=== PATIENT | female | born 1955 | race Caucasian/White ===

== ENCOUNTER 2020-01-29 03:30 | Inpatient (IN) | payer MEDICARE, SELFPAY ==
[2020-01-29] VITALS (64 sets, daily range): BP systolic 66–162; BP diastolic 31–131
[~2020-01-29] VITALS: Ht 172.7 cm; Wt 78.5 kg
[~2020-01-29 03:30] MED LIST: ACET-787 PO
--- NOTE | 2020-01-29 03:30 | NUR ---
BALDEMAR PERRY. TAKEN TO BED 1
--- NOTE | 2020-01-29 03:45 | NUR ---
64 YEAR OLD FEMALE BIBA FROM HOME FOR ALTERED LOC. PER EMS PT CHOKED ON FOOD WHILE EATING THE DAY BEFORE AT 1400 AND HAS BEEN ALTERED SINCE. PER EMS PT NORMALLY HAS GCS 15, BUT NOT HAS BEEN ACTING CORRECTLY SINCE AND DOES NOT SPEAK CORRECTLY. PER EMS PT FOUND ON FLOOR BY FAMILY, EMS NOT SURE IF THEY WITNESSED FALL. PT GCS 12 ([id number]), PT WEAK AND UNABLE TO LIFT LEGS WHEN ASKED. PT SQUEEZES FINGERS WITH LITTLE STRENGTH WHEN ASKED. PT MUMBLES INCOHERENT WORDS. PT AOX0, BREATHING LABORED AND EVEN, SKIN WARM AND DRY. PT PLACED ON 4L O2, 98%. BED IN LOWEST POSITION, LOCKED, BED RAIL UPX1. COVID PRECAUTIONS INITIATED. PT PLACED ON MONITOR, ERMD MADE AWARE OF PT. PMH - CHF, HTN ALLERGIES - NKA
--- NOTE | 2020-01-29 03:54 | NUR ---
RELATIVE TO PATIENT , "KAMERON" CALLED AT [phone] TO RECEIVE INFORMATION REGARDING PATIENT. NO ANSWER.
--- NOTE | 2020-01-29 03:59 | NUR ---
BP 73/41, ERMD MADE AWARE
[2020-01-29] MEDS ORDERED: NACL 0.9% 1,000 ML IV ONE ×3 (04:00→04:35)
--- NOTE | 2020-01-29 04:04 | NUR ---
INITIATED CODE BRAIN PER DR. CONNORS
[2020-01-29 04:08] LABS: HEMATOCRIT 29.3 % (36-48); HEMOGLOBIN 8.4 g/dL (12.0-16.0); MEAN CORPUSCULAR HEMOGLOBIN 25 pg (27-31); MEAN CORPUSCULAR HGB CONC 29 g/dL (33-37); MEAN CORPUSCULAR VOLUME 86.9 fL (80-94); PLATELET COUNT (AUTO) 357 K/uL (140-450); RED BLOOD CELL COUNT(AUTO) 3.37 MIL/uL (4.20-5.40)
--- NOTE | 2020-01-29 04:10 | NUR ---
Respiratory Therapist at bedside for respiratory intervention.
--- NOTE | 2020-01-29 04:15 | NUR ---
Sonny jacobson in [facility] - 01/29/20 at [address] Saravia examining patient.
[2020-01-29 04:23] LABS: RED CELL DISTRIBUTION WIDTH 20.5 % (11.6-13.7)
[2020-01-29 04:24] LABS: LYMPHOCYTES % (MANUAL) 3 % (20-46); MONOCYTES % (MANUAL) 1 % (5-12)
--- NOTE | 2020-01-29 04:30 | NUR ---
RN AT BEDSIDE. PT REMAINS ON CONTINOUS CARDIAC MONITORING
[2020-01-29] MEDS ORDERED: VANCOMYCIN 1,000 MG in DEXTROSE 5% 250 ML IV ONE (04:35)
[2020-01-29] MEDS ORDERED: PIPERACILLIN/TAZOBACTAM 3.375 GM in DEXTROSE 5% 50 ML IV ONE (04:35)
[2020-01-29 04:37] LABS: APPEARANCE,URINE CLOUDY (CLEAR); BILIRUBIN,URINE NEGATIVE (NEGATIVE); BLOOD, URINE NEGATIVE (NEGATIVE); COLOR,URINE YELLOW (YELLOW); LEUKOCYTE ESTERASE ,URINE 1+ (NEGATIVE); NITRITE, URINE NEGATIVE (NEGATIVE); UGLUCOSE NEGATIVE (NEGATIVE)
[2020-01-29] MEDS ORDERED: GABA300C PO (04:41)
[2020-01-29] MEDS ORDERED: DIGO0.122 PO (04:41)
[2020-01-29] MEDS ORDERED: CARV12.5 PO (04:41)
[2020-01-29] MEDS ORDERED: HYDR-5092 PO (04:41)
[2020-01-29] MEDS ORDERED: LISI-420 PO (04:41)
[2020-01-29] MEDS ORDERED: ESCI10TA61 PO (04:41)
--- NOTE | 2020-01-29 04:44 | NUR ---
PT TAKEN TO CT
[2020-01-29] MEDS ORDERED: PIPERACILLIN/TAZOBACTAM 3.375 GM VIAL IV ONE (04:49)
[2020-01-29] MEDS ORDERED: VANCOMYCIN 1,000 MG VIAL ONE (04:49)
[2020-01-29 04:54] LABS: ACETAMINOPHEN 4.8 ug/ml (10-30); ALBUMIN 2.2 g/dL (3.4-5.0); ANION GAP 12.8 (8-16); ASPARTATE AMINOTRANSFERASE 10 U/L (15-37); CHLORIDE 105 mmol/L (98-107); CREATININE 3.8 mg/dL (0.6-1.3); FREE T4 (FREE THYROXINE) 0.93 ng/dL (0.76-1.46); GFR ARICAN-AMERICAN 15 mL/min (>90); GLUCOSE 100 mg/dL (74-106); POTASSIUM 4.8 mmol/L (3.5-5.1); SODIUM SERUM 140 mmol/L (136-145); THYROID STIMULATING HORMONE 2.68 uIU/mL (0.34-3.74); TOTAL BILIRUBIN 0.3 mg/dL (0.0-1.0); UREA NITROGEN, BLOOD 52 mg/dL (7-18)
[2020-01-29 04:55] LABS: SALICYLATE < 2.8 mg/dL (2.8-20.0)
--- NOTE | 2020-01-29 05:00 | NUR ---
PT RETURNS FROM CT
--- NOTE | 2020-01-29 05:00 | NUR ---
RN AT BEDSIDE. PT REMAINS ON CONTINOUS CARDIAC MONITORING
--- NOTE | 2020-01-29 05:02 | NUR ---
PER PERI PRINCE TO HOLD LEVOPHED GTT UNTIL 3RD LITER OF NS HAS INFUSED COMPLETLEY.
[2020-01-29 05:07] LABS: RBC,URINE 0-5 /HPF (0-5); WBC,URINE TOO MANY TO COUNT /HPF (0-5)
--- NOTE | 2020-01-29 05:15 | NUR ---
COVID SWAB TAKEN AND SENT TO LAB
--- NOTE | 2020-01-29 05:30 | NUR ---
RN AT BEDSIDE. PT REMAINS ON CONTINOUS CARDIAC MONITORING
[2020-01-29] MEDS ORDERED: NOREPINEPHRINE 4 MG/4 ML VIAL IV ONE (05:37)
--- NOTE | 2020-01-29 05:38 | NUR ---
BP 75/27, HR 96. ERMD MADE AWARE
[2020-01-29] MEDS ORDERED: ONDANSETRON 4 MG/2 ML VIAL IM/IVP PRN (05:45)
[2020-01-29] MEDS ORDERED: ACETAMINOPHEN 325 MG TAB PO PRN (05:45)
[2020-01-29] MEDS ORDERED: DOCUSATE SODIUM 100 MG GELCAP PO PRN (05:45)
[2020-01-29] MEDS ORDERED: HYDROcodone/APAP 5/325 MG 1 TAB TAB PO PRN (05:45)
[2020-01-29] MEDS: NOREPINEPHRINE 4 MG in DEXTROSE 5% 250 ML IV ONE ×2 (05:50→06:54)
--- NOTE | 2020-01-29 05:50 | NUR ---
TITRATION ADMINISTERED ORDERED. SEE IV SPREAD SHEET FOR VS DURING TITRATION
--- NOTE | 2020-01-29 06:15 | NUR ---
ADMITTED PT FROM ER. PT ON LEVOPHED @ 7MCG/MIN. PT IS ALERT AND ORIENTED X1-2. SPEECH MUMBLES, ABLE TO FOLLOW COMMANDS. WEAKNESS ON BILATERAL LOWER EXTREMITIES. USES WALKER AT HOME PER PT. RESPIRATION EVEN AND UNLABORED. SKIN WARM AND DRY. BLANCHABLE REDNESS WITH LINEAR OPEN WOUND TO SACROCOCCYX, OPTIFOAM APPLIED TO SITE. LUNGS ARE CLEAR UPON AUSCULTATION. BOWEL SOUNDS ACTIVE. ORAL MUCOSA PINK AND MOIST. PERIPHERAL ACCESSES ON THE LEFT AC G22, AND RIGHT UPPER FOREARM G20. ASYMPTOMATIC AND PATENT. STRONG HAND PHOTOGRAPHIC AIDE ON BILATERAL HANDS. URBAN CATHETER IN PLACE DRAINING TO GRAVITY. MRSA SWAB OBTAINED. BED IN LOWEST POSITION, SIDE RAILS UP. DROPLET PRECAUTION INITIATED. FLACC 0. WILL CONTINUE TO MONITOR.
--- NOTE | 2020-01-29 06:15 | NUR ---
Patient will be admitted to care of Dr Duke. Admited to ICU. Will go to room 3. Belongings list completed. Report to Ángel MITCHELL.
[2020-01-29 06:33] LABS: CHOL/HDL RATIO 3.1 (1-4.5); MAGNESIUM 2.2 mg/dL (1.8-2.4); PHOSPHORUS 5.9 mg/dL (2.5-4.9); THYROID STIMULATING HORMONE 2.93 uIU/mL (0.34-3.74)
[2020-01-29] MEDS ORDERED: VANCOMYCIN PER PHARMACY MC PRN (06:35)
[2020-01-29] MEDS ORDERED: LORazepam 2 MG/ML VIAL IVP ONE (06:35)
[2020-01-29 06:48] LABS: PROTHROMBIN TIME 17.8 secs (10.8-13.4)
[2020-01-29 06:55] LABS: BARBITURATE, URINE NEGATIVE ng/ml (NEG <=200); BENZODIAZEPINE, URINE NEGATIVE ng/mL (NEG <=200); CANNABINOID, URINE NEGATIVE ng/mL (NEG <=50); COCAINE, URINE POSITIVE ng/mL (NEG <=300); OPIATE, URINE POSITIVE ng/mL (NEG <=2000); PHENCYCLIDINE SCREEN,URINE NEGATIVE ng/mL (NEG <=25)
--- NOTE | 2020-01-29 07:10 | NUR ---
ENDORSED PT TO DAY SHIFT RN FOR CONTINUITY OF CARE.
--- NOTE | 2020-01-29 07:40 | NUR ---
DR BUCKLEY AND MEDICAL TEAM AT BEDSIDE FOR EVAL
--- NOTE | 2020-01-29 07:50 | NUR ---
KAMERON PERAZA CALLED AT [phone], NO ANSWER, LEFT MESSAGE
[2020-01-29] MEDS ORDERED: LORazepam 2 MG/ML VIAL ONE (08:12)
--- NOTE | 2020-01-29 08:45 | NUR ---
TIMEOUT DONE FOR CENTRAL LINE, PLACED TO RIGHT IJ BY DR DELEON, CALLED RADIOLOGY CONFIRMATION XRAY
[2020-01-29] MEDS ORDERED: NOREPINEPHRINE 16 MG in DEXTROSE 5% 250 ML IV PRN (09:00)
[2020-01-29] MEDS ORDERED: ACET-5636 PO (09:26)
[2020-01-29] MEDS ORDERED: DABI150C PO (09:26)
--- NOTE | 2020-01-29 10:23 | NUR ---
DISCHARGE PLANNING: CONTACTED [place] AT [phone], ABLE TO SPEAK TO [facility]. SHE STATED THAT NO FOREIGN LANGUAGE PROFESSOR ASSIGNED AT THIS TIME SINCE AUTH IS UNTIL 01/30/[address] DELEON PATIENT IS NOT STABLE FOR TRANSFER TODAY. Addendum: 01/29/20 at 1212 by Surekha Baker THIS ID A 64 Y/O FEMALE PATIENT FROM HOME, WHO WAS BIBA DUE TO ALOC. PAST MEDICAL HISTORY INCLUDE CHF, ESSENTIAL HTN, A FIB AND CHRONIC PIN SYNDROME. INITIAL DIAGNOSIS OF SEPSIS, UTI AND HYPOTENSION. CURRENT LABS INCLUDE WBC 13.0, H/H 8.4/29.3, NA/K 140/4.8, BUN/CREA 52/3.8 AND ALB 2.2. COVID PENDING. D DIMER 943. ON O2 AT 4 LPM/NC. ON LEVOPHED DRIP. ON ZOSYN AND VANCOMYCIN. URINE AND BLOOD CS PENDING. UDS SHOWED POSITIVE FOR OPIATES X2 AND 1ST UDS POSITIVE FOR COCAINE AND 2ND IS NEGATIVE. CRITICAL CARE CONSULT IN PLACE - NOT SEEN YET. HEAD CT SHOWED NO HEMODYNAMICALLY SIGNIFICANT STENOSIS OR OCCLUSION. 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 CXR ON ADMISSION SHOWED SMALL TO MODERATE LEFT PLEURAL EFFUSION, BIBASILAR ATELECTASIS/ CONSOLIDATION. COVID STILL PENDING. DC PLAN PENDING ON PATIENT'S RESPONSE TO TREATMENT. Addendum: 01/30/20 at 1028 by Surekha Baker DISCUSSED DURING BED HUDDLE, PATIENT IS NOT STABLE FOR TRANSFER YET DUE TO 2 PRESSORS. CONTACTED [facility] AT [phone], ABLE TO SPEAK TO [facility] PATIENT COORDINATOR. SIOBHAN ELLIS IS THE ONE ASSIGNED TODAY. REQUESTED TO BE TRANSFERRED, HOWEVER SIOBHAN IS WITH ANOTHER CALL. PROVIDED UPDATE TO [facility]. SHE STATED SHE WILL RELAY THE MESSAGE TO SIOBHAN ELLIS. PROVIDED HER OF MY CONTACT INFO IF INCASE THEY HAVE ANYMORE QUESTIONS. Addendum: 01/30/20 at 1149 by Surekha Baker CM RECEIVED AN AUTH [id number] FOR 01/30/2020 TO 01/31/2020, NEXT REVIEW WILL BE 01/31/2020 AT 1000. WILL FOLLOW UP. Addendum: 01/31/20 at 1021 by Surekha Baker CM 0840: RECEIVED AN ORDER THAT PATIENT IS STABLE TO BE TRANSFERRED TO [facility]. CONTACTED [facility] AT [phone], ABLE TO SPEAK TO PATIENT COORDINATOR TRACI. HE STATED THEY DO NOT HAVE AN ASSIGNMENT YET. INFORMED HIM THAT PATIENT IS STABLE FOR TRANSFER, BUT H/H IS 6.6 TODAY AND WILL BE NEEDING TRANSFUSION FIRST PENDING DOC'S ORDER. Addendum: 01/31/20 at 1048 by Surekha Baker CM CONTACTED [facility] AGAIN TO PROVIDE UPDATE. PER MOLD YARD CRANE OPERATOR DECEMBER, SIOBHAN ELLIS IS ASSIGNED TODAY. INFORMED HER THAT THE PATIENT NEEDS THORACENTESIS TODAY AND HAVE TO BE MONITORED AFTER THE PROCEDURE. REQUESTED TRANSFER LATER THIS AFTERNOON OR EVENING. PER DECEMBER, SHE WILL LET SIOBHAN ELLIS KNOW. Addendum: 01/31/20 at 1124 by Surekha Baker RECEIVED A MESSAGE FROM SIOBHAN ELLIS, STATING THAT THEY WILL AUTHORIZE [id number] THE STAY FOR TODAY UNTIL TOMORROW DUE TO THE PROCEDURE. CONTACTED [facility] AND REQUESTED TO BE TRANSFERRED TO SIOBHAN ELLIS HOWEVER SHE IS ON THE PHONE WITH A DOCTOR AND HER MOLD YARD CRANE OPERATOR EMILIO PICKED UP AND CONFIRMED THE AUTH FOR TODAY. I REQUESTED IF SIOBHAN RASHEL CAN CALL ME BACK TO CONFIRM THE AUTH, SHE STATED SHE IS CONFIRMING IT WITH ME. JULES RAMIRES MADE AWARE. Addendum: 02/01/20 at 1134 by Surekha Baker CONTACTED [facility], ABLE TO SPEAK TO MOLD YARD CRANE OPERATOR ZAIN. HE STATED SIOBHAN HAWKINS AND MOLD YARD CRANE OPERATORShauna LY ARE THE ONE ASSIGNED TO [facility] PATIENT. REQUESTED TO BE TRANSFERRED TO ANY OF THE TWO, ABLE TO SPEAK TO MOLD YARD CRANE OPERATOR MALACHI. INFORMED HER THAT PATIENT IS STABLE FOR TRANSFER. SHE STATED TO FAX OVER STABILITY ORDER. PROVIDED HER WITH THE CALL PHONE FOR DOC TO DOC. DR. DELEON MADE AWARE. CLINICALS AND ORDER FAX TO [phone]. WILL FOLLOW UP. Addendum: 02/01/20 at 1610 by Surekha Baker CM RECEIVED A CALL FROM SIOBHAN HAWKINS OF [facility], STATING THAT PATIENT GOT ACCEPTED AT [facility] PENDING BED NUMBER. CHARGE NURSE TAYLOR MADE AWARE. CONTACTED PATIENT'S KAMERON AND INFORMED REGARDING TRANSFER AND IS IN AGREEMENT.
[2020-01-29] MEDS: NACL 0.9% 1,000 ML IV SCH (10:25)
[2020-01-29] MEDS ORDERED: CALCIUM GLUCONATE 10% 1,000 MG in NACL 0.9% 50 ML IV ONE (10:40)
--- NOTE | 2020-01-29 10:46 | NUR ---
ENTRY LEVEL RECEPTIONIST NOTE: Basic Screen: Yes High Risk DC Screen Roxana: KAMERON Lee Relationship: Pre-Admission Living Arrangements: Lives with Other Prior ADL Independent Current Home Health Name/Tel: N/A Current DME/02 Name/Tel: N/A Current Hospice Name/Tel: N/A Current Dialysis Name/Tel: N/A Healthcare Decision Maker: Patient Advance Directive No Physician Orders for Life Sustaining Treatment Form No Patient/Family Have Educational Needs No Discipline: Case Mgt/Social Svcs Tentative Discharge Plan/Destination: No Needs Identified Will require assistance post discharge: No Referred to Coordinator Of Rehabilitation Services: No Tentative Discharge Plan Summary: PATIENT IS A 64-YEAR-OLD FEMALE ADMITTED FOR SEPSIS AND UTI. PATIENT HAS PMHX OF HYPERTENSION. PATIENT WAS ADMITTED FROM HOME WHERE SHE LIVES WITH AND SONS. DUE TO PATIENT'S MEDICAL CONDITION, SW WAS UNABLE TO MEET PATIENT AT BEDSIDE. SW CONTACTED PATIENT'S HUSBND KAMERON PERAZA [phone], PER KAMERON, PATIENT IS INDEPENDENT WITH ALL ADLS AND IS ALERT/ORIENTED AT BASELINE. KAMERON STATED THAT ALL OF PATIENT'S NEEDS ARE BEING MET. KAMERON REPORTED NO HISTORY OF SUBSTANCE ABUSE OR MENTAL HEALTH. TENTATIVE DISCHARGE PLAN IS FOR PATIENT TO RETURN HOME. NO FURTHER NEEDS IDENTIFIED. Signature: HAWK VASQUEZ Date: Jan 29, 2020 Time: 10:45
[2020-01-29 11:56] LABS: BARBITURATE, URINE NEGATIVE ng/ml (NEG <=200); BENZODIAZEPINE, URINE NEGATIVE ng/mL (NEG <=200); CANNABINOID, URINE NEGATIVE ng/mL (NEG <=50); COCAINE, URINE NEGATIVE ng/mL (NEG <=300); OPIATE, URINE POSITIVE ng/mL (NEG <=2000); PHENCYCLIDINE SCREEN,URINE NEGATIVE ng/mL (NEG <=25)
[2020-01-29] MEDS: PIPERACILLIN/TAZOBACTAM 3.375 GM in DEXTROSE 5% 50 ML IV SCH ×2 (12:50→18:37)
--- NOTE | 2020-01-29 14:12 | NUR ---
ST NOTE ORDER RECEIVED, CHART REVIEWED. PT SEEN BEDSIDE, GENERALLY SOMNOLENT, O2 SATS 99-100% ON O2 NC. PT DID NOT SUSTAIN ATTENTION TO TASK, OFTEN KEPT HER EYES CLOSED, DESPITE FIRM STERNAL RUB, REPOSITIONING, AND COLD STIMULUS TO FACE. PT WEAKLY ANSWERED "YES/NO" X2/8 TRIALS TO VERBAL STIMULATION. 1/2 TSP TRIAL OF NECTAR THICK LIQUIDS X3 GIVEN WITH POOR LABIAL SEAL, POOR TSP STRIPPING, SUSPECT POOR CONTROL OF BOLUS, SLIGHT DELAY SWALLOW TRIGGER, FAIR LARYNGEAL EXCURSION, DELAYED WEAK COUGH 2/3 TRIALS. FURTHER PO TRIALS DEFERRED D/T SOMNOLENCE, POOR SUSTAINED ATTENTION. CASE D/W PT'S RN, BEATRIZ. PT NOT APPROPRIATE FOR PO'S AT THIS TIME. MOBILE SOLUTIONS ARCHITECT TO F/U TO COMPLETE BEDSIDE SWALLOW EVAL WHEN PT CAN SUSTAIN ATTENTION TO TASK. -SAVANA TINSLEY MA, CCC-MOBILE SOLUTIONS ARCHITECT
--- NOTE | 2020-01-29 14:20 | NUR ---
PT RESTING WITH EYESC LOSED, AROUSES TO VOICE, ABLE TO STATE HER FULL NAME, MUMBLES, AND CONFUSED FOLLOWS SIMPLE COMMANDS ONLY AT THIS TIME, VITALS STABLE, REMAINS ON LEVOPHED DRIP.
--- NOTE | 2020-01-29 15:15 | NUR ---
PATIENT HAS BEEN SCREENED AND CATEGORIZED MODERATE NUTRITION RISK. PATIENT WILL BE SEEN WITHIN 3-5 DAYS OF ADMISSION. 01/31/20 02/02/[address]
--- NOTE | 2020-01-29 16:20 | NUR ---
PERICARE DONE, URBAN CARE DONE, PT ABLE TO TURN HERSELF WITH MINIMAL ASSIST, FOLLOWS COMMANDS, LINEN AND GOWN CHANGED.
[2020-01-29] MEDS ORDERED: CALCIUM ACETATE 667 MG TAB PO SCH (17:00)
--- NOTE | 2020-01-29 17:43 | NUR ---
[facility] PT PLACED ON SIMPLE MASK @ 10L DUE TO DESAT DR GARCIA WOULD LIKE PT O2 > 92% Addendum: 01/29/20 at 1751 by Hernan Sparks Jr RT CORRECTION - DR DELEON
--- NOTE | 2020-01-29 18:02 | NUR ---
KARMEN CALLED BACK, ADMISSION QUESTIONAIRES COMPLETED.
--- NOTE | 2020-01-29 18:05 | NUR ---
DR DELEON AT [facility], TO LIMIT LEVOPHED MAX AT 8MCG/MIN, THEN START VASOPRESSIN IF NEEDED PER DR BRICEÑO.
[2020-01-29] MEDS: VASOPRESSIN 20 UNITS in NACL 0.9% 250 ML IV SCH (18:15)
[2020-01-29 18:34] LABS: BASOPHILS % (AUTO) 0.3 % (0.0-2.0); EOSINOPHILS # (AUTO) 0.3 K/uL (0-0.4); EOSINOPHILS % (AUTO) 2.2 % (0.0-4.0); HEMATOCRIT 27.9 % (36-48); HEMOGLOBIN 8.1 g/dL (12.0-16.0); LYMPHOCYTES % (AUTO) 7.9 % (20.5-51.1); MEAN CORPUSCULAR HEMOGLOBIN 25 pg (27-31); MEAN CORPUSCULAR HGB CONC 29 g/dL (33-37); MEAN CORPUSCULAR VOLUME 86.3 fL (80-94); MONOCYTES # (AUTO) 0.9 K/uL (0.8-1.0); MONOCYTES % (AUTO) 6.7 % (1.7-9.3); NEUTROPHILS # (AUTO) 10.8 K/uL (1.8-7.7); NEUTROPHILS % (AUTO) 82.9 % (42.2-75.2); PLATELET COUNT (AUTO) 326 K/uL (140-450); RED BLOOD CELL COUNT(AUTO) 3.24 MIL/uL (4.20-5.40); RED CELL DISTRIBUTION WIDTH 20.7 % (11.6-13.7); WHITE BLOOD COUNT (AUTO) 13.1 K/uL (4.8-10.8)
[2020-01-29 18:39] LABS: CARBON DIOXIDE 25.2 mmol/L (21-32); POTASSIUM 4.2 mmol/L (3.5-5.1)
--- NOTE | 2020-01-29 18:39 | NUR ---
ADMINISTERED ANTIBIOTIC ZOSYN PER MD ORDER.
--- NOTE | 2020-01-29 19:22 | NUR ---
REPORT GIVEN TO SPEECH THERAPY DIRECTOR NURSE,PT AWAKE NOW, CRYING "LET ME GET OUT OF HERE". PT ABLE TO CONSOLE EASILY.
--- NOTE | 2020-01-29 19:30 | NUR ---
RECEIVED PT FROM DAY SHIFT RN, PT AWAKE IN BED CRYING, "LET ME OUT", PT FOLLOWS SIMPLE COMMANDS, ABLE TO STATE NAME AND LOCATION, PT IS LETHARGIC AND MUMBLES RESPONSES TO QUESTIONS. PT HAS RIJ TRIPLE LUMEN, RECEIVING LEVOPHED 8MCG/MIN AND VASOPRESSIN 0.02 UNITS/MIN, NS 60 ML/HR, LUNG SOUNDS DIMINISHED, WITH INTERMITTENT NON PRODUCTIVE COUGH, URBAN CATHETER DRAINING CLEAR LIGHT YELLOW URINE, PULSES PALPABLE UPPER AND LOWER EXTREMITIES, BOWEL SOUNDS ACTIVE, SAFETY PROTOCOLS IN PLACE WILL CONTINUE TO MONITOR PT.
[2020-01-29] MEDS: ASCORBIC ACID 500 MG TAB PO SCH (20:15)
--- NOTE | 2020-01-29 20:15 | NUR ---
CALLED TO ASK IF IT WAS OK TO HOLD VIT C PT IS YINOCADRIAN AND WAS UNABLE TO PASS SWALLOW EVAL EARLIER IN THE DAY, HE SAID TO HOLD FOR NOW. OTHER PT MEDS GIVEN
[2020-01-30] VITALS (67 sets, daily range): BP systolic 71–190; BP diastolic 15–119
--- NOTE | 2020-01-30 | NUR ---
PT MEDS GIVEN, PT AWAKE STATING SHE NEEDS TO PEE INFORMED HER ITS OK TO PEE SHE HAS A URBAN IN PLACE, PT APPEARS MORE ALERT AND SHE WAS RE-INFORMED HER OF HER SITUATION AND WHY SHE IS IN THE HOSPITAL, PT SEEMS TO UNDERSTAND AT THIS TIME, WILL CONTINUE TO MONITOR PT
[2020-01-30] MEDS: PIPERACILLIN/TAZOBACTAM 3.375 GM in DEXTROSE 5% 50 ML IV SCH ×5 (00:27→23:11)
--- NOTE | 2020-01-30 02:30 | NUR ---
PT AWAKE IN BED, ASKING WHEN SHE CAN LEAVE, RE-INFORMED PT OF WHY SHE IS IN ICU, AND REINFORCED TEACHING FOR HER TO KEEP HER MASK ON.
--- NOTE | 2020-01-30 03:05 | NUR ---
PATIENT SEEN AND ASSESSED. PATIENT ON SIMPLE MASK 10L AND KEEPS TAKING IT OFF. SWITCHED TO OXYMIZER 10L WITH SPO2 OF 98%. WILL CONTINUE TO MONITOR PATIENT.
[2020-01-30] MEDS: NACL 0.9% 1,000 ML IV SCH (05:26)
[2020-01-30 06:19] LABS: BASOPHILS # (AUTO) 0.1 K/uL (0.00-0.22); BASOPHILS % (AUTO) 0.9 % (0.0-2.0); EOSINOPHILS # (AUTO) 0.1 K/uL (0-0.4); EOSINOPHILS % (AUTO) 1.2 % (0.0-4.0); HEMATOCRIT 23.2 % (36-48); HEMOGLOBIN 7.1 g/dL (12.0-16.0); LYMPHOCYTES # (AUTO) 0.6 K/uL (2.5-16.5); MEAN CORPUSCULAR HEMOGLOBIN 26 pg (27-31); MEAN CORPUSCULAR HGB CONC 30 g/dL (33-37); MEAN CORPUSCULAR VOLUME 84.5 fL (80-94); MONOCYTES # (AUTO) 0.6 K/uL (0.8-1.0); NEUTROPHILS % (AUTO) 83.9 % (42.2-75.2); PLATELET COUNT (AUTO) 267 K/uL (140-450); RED BLOOD CELL COUNT(AUTO) 2.75 MIL/uL (4.20-5.40); RED CELL DISTRIBUTION WIDTH 19.8 % (11.6-13.7); WHITE BLOOD COUNT (AUTO) 8.4 K/uL (4.8-10.8)
[2020-01-30 06:23] LABS: MAGNESIUM 1.9 mg/dL (1.8-2.4); PHOSPHORUS 2.8 mg/dL (2.5-4.9)
--- NOTE | 2020-01-30 06:40 | NUR ---
TRIED SWALLOW SCREENING ON PT PER DR. DELEON REQUEST, SMALL AMOUNT OF CLEAR LIQUID GIVEN PT UNABLE TO SWALLOW WITHOUT COUGHING
[2020-01-30 07:08] LABS: ANION GAP 13.6 (8-16); CARBON DIOXIDE 25.3 mmol/L (21-32); POTASSIUM 3.9 mmol/L (3.5-5.1)
[2020-01-30 07:09] LABS: ALBUMIN 1.8 g/dL (3.4-5.0); TOTAL BILIRUBIN 0.3 mg/dL (0.0-1.0)
--- NOTE | 2020-01-30 07:15 | NUR ---
REPORT GIVEN TO DAY SHIFT RN FOR CONTINUED CARE
--- NOTE | 2020-01-30 07:17 | NUR ---
RECEIVED BEDSIDE REPORT FROM VIBRATOR EQUIPMENT TESTER NURSE CLAUDETTE FOR CONTINUITY OF CARE. PT IS AAOX2, ABLE TO VERBALIZED HER NAME, BIRTHDAY, AND PLACE-[facility], BUT UNABLE TO STATE DATE AND TIME. SHE IS ABLE TO FOLLOW SIMPLE COMMANDS AND STATES, " I WANT TO GET OUT OF HERE." EXPLAINED TO PATIENT THAT SHE IS IN THE HOSPITAL AND SHE WILL BE GOING HOME ONCE SHE IS GETTING BETTER AND CLEAR BY MD. RESPIRATION EVEN AND UNLABORED ON 8 LPM VIA OXYMIZER, LUNG AUSCULTATED, DIMINISHED. NO SIGNS OF ACUTE DISTRESS NOTED. IV ON LAC 18G AND RAC 20G, SALINE LOCK. RIJ TRIPLE LUMEN, INFUSING VASOPRESSIN AT 15 ML/HR 0.02 UNIT/MIN, LEVOPHED AT 3.75 ML/HR 4MCG/MIN, AND NS AT 60 ML/HR. SKIN TEAR ON BUTTOCK, COVERED BY HEART-SHAPED OPTIFOAM, CLEAN AND DRY. ABDOMEN SOFT AND ROUND. URBAN IN PLACE, DRAINING YELLOW URINE WITH GRAVITY. CHIEF BUILDING INSPECTOR IN PLACE. NPO MAINTAINS. SAFETY MEASURES IN PLACE. BED IN LOW POSITION, HOB ELEVATED 30 DEGREE, BOTH SIDE RAILS UP, BED LOCKED.
--- NOTE | 2020-01-30 07:20 | NUR ---
CHECKED ON PT. CURRENTLY ON 10L OXYMIZER, SPO2 93%, HR 99. PT SHOWS NO SIGN OF DISTRESS AT THIS TIME, WILL CONTINUE TO MONITOR.
--- NOTE | 2020-01-30 07:35 | NUR ---
DR BUCKLEY AND TEAM ARE BY BEDSIDE.
--- NOTE | 2020-01-30 07:50 | NUR ---
PT COMPLAINED THAT SHE FEELS COLD, PROVIDED EXTRA BLANKET. PT IS RESTING ON BED AT THIS TIME.
[2020-01-30] MEDS: FERROUS SULFATE 325 MG TABEC PO SCH ×2 (08:00→16:38)
[2020-01-30 08:07] LABS: FERRITIN 154 ng/mL (15-150); FOLIC ACID > 20.00 ng/mL (>3.0); TRANSFERRIN 195 mg/dL (192-364)
[2020-01-30] MEDS: VASOPRESSIN 20 UNITS in NACL 0.9% 250 ML IV SCH (08:37)
--- NOTE | 2020-01-30 08:37 | NUR ---
STARTED A NEW BAG OF VASOPRESSIN, CONTINUE INFUSING AT 15 ML/HR 0.02 UNIT/MIN.
[2020-01-30] MEDS: ASCORBIC ACID 500 MG TAB PO SCH ×2 (09:00→21:31)
[2020-01-30] MEDS: VANCOMYCIN 750 MG in DEXTROSE 5% 250 ML IV SCH ×2 (09:23→21:31)
--- NOTE | 2020-01-30 09:30 | NUR ---
ADMINISTERED VANCOMYCIN VIA IVPB PER MD ORDER, MED EDUCATION PROVIDED, REINFORCEMENT NEEDED DUE TO MENTAL STATUS, HOLD PO MEDS FOR NOW, AND PENDING FOR SWALLOW EVALUATION.PROVIDED URBAN CARE AND CHG BATH, REPOSITIONED AND OFF LOADED PRESSURE AREA WITH PILLOWS. PT TOLERATED WELL. PT IS RESTING ON BED AT THIS TIME. NO SIGNS OF ACUTE DISTRESS NOTED. CUSTOMER SUPPORT ANALYST IN PLACE. SAFETY MEASURES IN PLACE.
[2020-01-30] MEDS ORDERED: FUROSEMIDE 40 MG/4 ML VIAL IVP SCH (11:00)
--- NOTE | 2020-01-30 11:07 | NUR ---
ADMINISTERED LASIX VIA IVP PER MD ORDER, MED EDUCATION PROVIDED TO PATIENT AND REENFORCEMENT NEEDED. PT AWAKE AND WATCHING TV ON BED. REPOSITIONED PT AND OFF LOADED PRESSURE WITH PILLOWS. NO SIGNS OF ACUTE DISTRESS NOTED. DR VERDUGO IS AT BEDSIDE. COMPUTER OPERATIONS TECHNICIAN IN PLACE. SAFETY MEASURES IN PLACE.
--- NOTE | 2020-01-30 11:53 | NUR ---
PER RADIOLOGY DR ZAMBRANO (RADIOLOGIST), HOLD HEPARIN AFTER 1300 DOSE TODAY FOR THORACENTHESIS TOMORROW
--- NOTE | 2020-01-30 11:56 | NUR ---
DISCONTINUED IVF AT 60 ML/HR PER MD ORDER.
--- NOTE | 2020-01-30 12:09 | NUR ---
ADMINISTERED ZOSYN VIA IVPB PER MD ORDER, MED EDUCATION PROVIDED, REINFORCEMENT NEEDED DUE TO MENTAL STATUS, PT IS RESTING ON BED AT THIS TIME. NO SIGNS OF ACUTE DISTRESS NOTED. DELIVERY HELPER IN PLACE. SAFETY MEASURES IN PLACE.
[2020-01-30] MEDS ORDERED: DEXT 5% / NACL 0.45% 1,000 ML IV SCH (12:15)
--- NOTE | 2020-01-30 12:25 | NUR ---
STARTED D5NS0.45 AT 30 ML/HR PER MD ORDER.
--- NOTE | 2020-01-30 12:45 | NUR ---
TITRATED PT FIO2 TO 5L OXYMIZER. SPO2 READS 99% HR 102. NURSE AWARE OF CHANGE, NO SIGN OF DISTRESS AT THIS TIME, WILL CONTINUE TO MONITOR.
--- NOTE | 2020-01-30 13:38 | NUR ---
WITH ASSIST FROM THERMIT WELDING MACHINE OPERATOR, SCOOTED PT UP, REPOSITIONED PT AND OFF LOADED PRESSURE WITH PILLOWS. PT TOLERATED WELL. PT IS LYING COMFORTABLY ON BED AND WATCHING TV. NO SIGNS OF DISTRESS NOTED. SAFETY MEASURES IN PLACE.
[2020-01-30] MEDS ORDERED: HYDRAGUARD CREAM TP PRN (13:45)
[2020-01-30] MEDS ORDERED: Z-GUARD PASTE TP PRN (13:45)
--- NOTE | 2020-01-30 13:46 | NUR ---
01/30/20 RD INITIAL ASSESSMENT COMPLETED PLEASE REFER TO NUTRITION ASSESSMENT UNDER CARE ACTIVITY FOR ESTIMATED NUTRITIONAL NEEDS. 1. PENDING SWALLOWING EVALUATION RECOMMENDATIONS 2. CONSIDER ENSURE TID WITH THICKENING RECOMMENDED BY MAIL FORWARDING SYSTEM MARKUP CLERK 3. RD TO FOLLOW-UP 2-3 DAYS, HIGH RISK ALEJO MCFADDEN, RD
--- NOTE | 2020-01-30 13:54 | NUR ---
ADMINISTERED HEPARIN VIA SUBQ PER MD ORDER, MED ED PROVIDED AND REINFORCEMENT NEEDED DUE TO MENTAL STATUS, PT TOLERATED SUBQ WELL. PROVIDED WOUND CARE, CLEANSED WITH NS AND PAT DRY, APPLIED Z-GUARD AND HEART-SHAPED OPTIFOAM TO BUTTOCK. OFFLOADED PRESSURES AREAS WITH PILLOWS, EDUCATED PATIENT ON SKIN CARE. PT IS RESTING ON BED AND WATCHING TV AT THIS TIME. NO SIGNS OF ACUTE DISTRESS NOTED. SAFETY MEASURES IN PLACE.
--- NOTE | 2020-01-30 14:55 | NUR ---
OBTAINED TELEPHONE CONSENT FROM PT'S KAMERON PERAZA FOR US GUIDED THORACENTESIS, VERIFIED WITH ANOTHER RN. KAMERON WAS AWARE AND AGREED TO PROCEDURE.
[2020-01-30] MEDS: MUPIROCIN CA NASAL 2% 1GM TUBE NS SCH (15:12)
[2020-01-30] MEDS: CHLORHEXADINE GLUC 2% CLOTH TP SCH (15:13)
--- NOTE | 2020-01-30 15:15 | NUR ---
ADMINISTERED BACTROBAN AND WIPE UPPER EXTREMITIES, LOWER EXTREMITIES, CHEST AND BACK WITH CHG, EDUCATED PT ABOUT MRSA, REINFORCEMENT NEEDED DUE TO MENTAL STATUS. PT AWAKE AND RESTING ON BED AT THIS TIME. NO SIGNS OF ACUTE DISTRESS NOTED. MANAGER OF ENGINEERING IN PLACE. SAFETY MEASURES IN PLACE.
--- NOTE | 2020-01-30 15:25 | NUR ---
CHECKED BLOOD GLUCOSE AND RECEIVED 127.
--- NOTE | 2020-01-30 15:40 | NUR ---
DR COOL AT BEDSIDE.
[2020-01-30] MEDS ORDERED: CRUSHER, PILL MC ONE (16:33)
[2020-01-30] MEDS: ESCITALOPRAM 20 MG TAB PO SCH (16:38)
[2020-01-30] MEDS: DIGOXIN 0.125 MG TAB PO SCH (16:39)
--- NOTE | 2020-01-30 16:40 | NUR ---
DR DELEON IS BY BEDSIDE AND WAS AWARE THAT VASOPRESSIN AND LEVOPHED DRIP HOLD.
--- NOTE | 2020-01-30 16:53 | NUR ---
ADMINISTERED SCHEDULED MEDS, CRUSHED AND MIXED PUDDING AND THICKENING WATER, MEDS EDUCATION PROVIDED, AND REINFORCEMENT NEEDED, PT TOLERATED WELL. PT COMPLAINED OF CONSTIPATED, MEDICATED WITH PRN COLACE. PT AWAKE AND WATCHING TV ON BED AT THIS TIME. NO SIGNS OF ACUTE DISTRESS NOTED. SAFETY MEASURES IN PLACE.
[2020-01-30] MEDS ORDERED: MUPIROCIN CA NASAL 2% 1GM TUBE NS SCH (17:30)
[2020-01-30] MEDS ORDERED: CHLORHEXADINE GLUC 2% CLOTH TP SCH (17:30)
--- NOTE | 2020-01-30 17:34 | NUR ---
ST CLARIFICATION NOTE Pt DEMONSTRATED MILD TO MODERATE OROPHARYNGEAL DYSPHAGIA. Pt HAS MINIMAL DENTITION. Pt WAS ABLE TO TOLERATE PUREE FOOD, MSFC FOOD, AND NTL BY TSP W/O DIFFICULTY OR OVERT S/S OF ASPIRATION OR PENETRATION NOTED. AP TRANSFER AND SWALLOW RESPONSE WERE ADEQUATE WITH FULL LARYNGEAL ELEVATION AND EXCURSION. Pt DEMONSTRATED THROAT CLEAR AND MILD COUGH FOLLOWING ICE CHIPS, THIN BY TSP/CUP, AND NTL BY CUP. Pt'S DENTITION WAS INADEQUATE FOR MASTICATION OF MSC. Pt CONTINUES TO REQUIRE SUPPLEMENTAL O2 IN ORDER TO SUSTAIN SATURATION. REC MSFC FOOD AND NECTAR THICK LIQUIDS BY TSP ONLY. ASPIRATION PRECAUTIONS, ORAL CARE, TRAY SET UP, AND SUPERVISION NEEDED DURING MEALS. Pt IS ABLE TO FEED SELF, BUT CAN BE IMPULSIVE. IF UNABLE TO DELIVER LIQUIDS VIA TSP BY SELF, Pt WILL NEED FEEDER TO REDUCE RISK OF ASPIRATION. ST FOR SWALLOW TX ORDERED FOR ONGOING DIET ANALYSIS, SAFE SWALLOW STRATEGIES, AND Pt/CG EDUCATION. RAFI ALCANTAR MS, CCC-COATING ENGINEER
--- NOTE | 2020-01-30 17:40 | NUR ---
PROVIDED DINNER TRAY. SCOOTED PATIENT TO SIT UP STRAIGHT ON BED FOR DINNER. PT IS EATING DINNER NOW.
[2020-01-30] MEDS ORDERED: BISACODYL 10 MG SUPP RC SCH (18:00)
--- NOTE | 2020-01-30 18:15 | NUR ---
ADMINISTERED SCHEDULED MEDS PER MD ORDER, ZOSYN VIA IVPB AND BISACODYL SUPPOSITORY, MEDS EDUCATION PROVIDED. PT TOLERATED WELL. PT AWAKE AND RESTING ON BED AT THIS TIME. NO SIGNS OF ACUTE DISTRESS NOTED. SAFETY MEASURES IN PLACE.
--- NOTE | 2020-01-30 18:36 | NUR ---
ATTENDED TO PT AND PT SAID THAT SHE NEEDS TO USE THE BEDPAN. ASSISTED PT TO SIT ON BEDPAN.
--- NOTE | 2020-01-30 18:45 | NUR ---
PT IS TALKING ON THE PHONE WITH KAMERON, NO SIGNS OF ACUTE DISTRESS NOTED.
--- NOTE | 2020-01-30 19:00 | NUR ---
PT HAVE ONE LARGE SOFT BLACK BM, CLEANED PT AND COLLECTED OCCULT BLOOD. DELIVERED TO LAB.
--- NOTE | 2020-01-30 19:02 | NUR ---
PATIENT SEEN AND ASSESSED. FOUND PATIENT ON 5L OXYMIZER WITH SPO2 OF 100%. TITRATED O2 TO 3L OXYMIZER WITH SPO2 OF 98%. PATIENT IN NO RESPIRATORY DISTRESS AT THIS TIME. RN NOTIFIED. WILL CONTINUE TO MONITOR PATIENT.
--- NOTE | 2020-01-30 19:20 | NUR ---
ENDORSED PT AT BEDSIDE TO LETTER CARRIER NURSE NURSE FOR CONTINUITY OF CARE. ENDORSED TO HOLD HEPARIN SUBQ. PT IS IN STABLE CONDITION.
--- NOTE | 2020-01-30 19:25 | NUR ---
RECEIVED PT FROM DAY SHIFT RN PT ON 3L OXYMIZER, PT ALERT TO PERSON AND PLACE, IS AWAKE AND TALKING, ABLE TO FOLLOW SIMPLE COMMANDS AND ANSWER QUESTIONS, RIJ TRIPLE LUMEN, LEFT AC 18G, RAC 20G, LUNG SOUNDS DIMINISHED, PULSES S1 AND S2 HEART SOUNDS HEARD, BOWEL SOUNDS ACTIVE, PULSES PALPABLE UPPER AND LOWER EXTREMITIES, URBAN CATHETER IN PLACE DRAINING CLEAR YELLOW URINE, SKIN IS NON INTACT WITH SKIN TEAR TO SACRAL AREA ABOVE THE BUTTOCKS AREA AROUND IS BLANCHABLE RED. SAFETY PROTOCOLS IN PLACE WILL CONTINUE TO MONITOR PT
--- NOTE | 2020-01-30 21:15 | NUR ---
PT HAD 1 MODERATE SIZED SOFT BLACK BM, CLEANED AND REPOSITIONED PT, ALL PT MEDS GIVEN WILL CONTINUE TO MONITOR PT
[2020-01-31] VITALS (12 sets, daily range): BP systolic 98–161; BP diastolic 67–106
--- NOTE | 2020-01-31 | NUR ---
PT RESTING IN BED ASKED FOR LIGHTS TO BE TURNED OFF AND TO BE TURNED ONTO OTHER SIDE, PT REPOSITIONED AND RE-INFORMED OF PROCEDURE TOMORROW, PT IS NPO PER MD ORDER, AND INFORMED SHE CANT HAVE ANY WATER UNTIL AFTER PROCEDURE, NO SIGNS OF DISTRESS OBSERVED WILL CONTINUE TO MONITOR PT
[2020-01-31] MEDS ORDERED: HYDRAGUARD CREAM TP SCH (01:00)
[2020-01-31] MEDS: Z-GUARD PASTE TP SCH ×2 (02:15→15:46)
--- NOTE | 2020-01-31 04:15 | NUR ---
PT BED BATH GIVEN, REPOSITIONED PT, NO SIGNS OF DISTRESS OBSERVED WILL CONTINUE TO MONITOR PT
[2020-01-31] MEDS: PIPERACILLIN/TAZOBACTAM 3.375 GM in DEXTROSE 5% 50 ML IV SCH ×4 (05:27→23:40)
[2020-01-31 06:15] LABS: BASOPHILS % (AUTO) 0.3 % (0.0-2.0); EOSINOPHILS % (AUTO) 0.3 % (0.0-4.0); HEMATOCRIT 21.8 % (36-48); LYMPHOCYTES # (AUTO) 1.1 K/uL (2.5-16.5); LYMPHOCYTES % (AUTO) 14.3 % (20.5-51.1); MEAN CORPUSCULAR HEMOGLOBIN 25 pg (27-31); MEAN CORPUSCULAR HGB CONC 30 g/dL (33-37); MEAN CORPUSCULAR VOLUME 82.8 fL (80-94); MONOCYTES # (AUTO) 0.6 K/uL (0.8-1.0); MONOCYTES % (AUTO) 8.2 % (1.7-9.3); NEUTROPHILS % (AUTO) 76.9 % (42.2-75.2); PLATELET COUNT (AUTO) 246 K/uL (140-450); RED BLOOD CELL COUNT(AUTO) 2.63 MIL/uL (4.20-5.40); RED CELL DISTRIBUTION WIDTH 19.6 % (11.6-13.7); WHITE BLOOD COUNT (AUTO) 7.8 K/uL (4.8-10.8)
[2020-01-31 06:27] LABS: CARBON DIOXIDE 31.2 mmol/L (21-32); CREATININE 0.5 mg/dL (0.6-1.3); POTASSIUM 3.2 mmol/L (3.5-5.1)
[2020-01-31 06:48] LABS: MAGNESIUM 1.7 mg/dL (1.8-2.4); PHOSPHORUS 1.7 mg/dL (2.5-4.9)
--- NOTE | 2020-01-31 07:20 | NUR ---
ENDORSED PT TO DAY SHIFT RN NO SIGNS OF DISTRESS OBSERVED AT THIS TIME
[2020-01-31 07:23] LABS: HEMOGLOBIN 6.6 g/dL (12.0-16.0)
--- NOTE | 2020-01-31 07:28 | NUR ---
RECEIVED REPORT FROM LAB FOR CRITICAL LAB HGB 6.6 AND HCT 21.8. PAGED WAITING FOR CALL BACK AND ORDER. ENDORESED TO NEXT SHIFT TO CONTINUE TO FOLLOW UP.
[2020-01-31] MEDS ORDERED: MAG SULF 2000 MG/WATER PREMIX 50 ML IV SCH (09:00)
[2020-01-31] MEDS ORDERED: FUROSEMIDE 40 MG/4 ML VIAL IVP SCH (09:00)
--- NOTE | 2020-01-31 09:00 | NUR ---
RECIEVED PT WITH DX SEPSIS. SHE IS NOW OFF OF PRESSORS AND AFEBRILE. SHE IS ON IV ANTIBIOTICS. SHE IS TO HAVE A THORACENTISIS TODAY. VS ARE STABLE WITH O2 AT 3L.
[2020-01-31] MEDS: MORPHINE SULFATE 2 MG/ML SYR IVP PRN ×3 (11:22→20:34)
[2020-01-31] MEDS: DIGOXIN 0.125 MG TAB PO SCH (11:49)
[2020-01-31] MEDS: SODIUM PHOS / POTASSIUM PHOS 1 PKT PDR PO SCH (11:50)
[2020-01-31] MEDS: ESCITALOPRAM 20 MG TAB PO SCH (11:50)
[2020-01-31] MEDS: ASCORBIC ACID 500 MG TAB PO SCH ×2 (11:51→20:35)
[2020-01-31] MEDS: FERROUS SULFATE 325 MG TABEC PO SCH ×2 (11:51→16:40)
[2020-01-31] MEDS ORDERED: KCL 20 MEQ/WATER INJ PREMIX 200 ML IV SCH (12:00)
[2020-01-31] MEDS: VANCOMYCIN 1,000 MG in DEXTROSE 5% 250 ML IV SCH (13:05)
--- NOTE | 2020-01-31 14:00 | NUR ---
THE PT GOT 1000CC OUT ON THE THORACENTISIS. SHE IS ON 2L VIA NC WITH UPPER 90S SO2.
[2020-01-31] MEDS: GABAPENTIN 300 MG CAP PO SCH ×2 (15:46→20:34)
[2020-01-31] MEDS: MUPIROCIN CA NASAL 2% 1GM TUBE NS SCH (15:47)
[2020-01-31] MEDS: CHLORHEXADINE GLUC 2% CLOTH TP SCH (16:00)
[2020-01-31] MEDS: NACL 0.9% 1,000 ML IV SCH (18:00)
--- NOTE | 2020-01-31 18:00 | NUR ---
STARTED TRANSFUSION FOR HGB 6.6. NO ADVERSED RX NOTED.
--- NOTE | 2020-01-31 19:15 | NUR ---
REPORT RECEIVED FROM AM NURSE AT BEDSIDE. PT IN STABLE CONDITION. AAOX4. INTRODUCED SELF TO PT. NO COMPLAINTS OF PAIN. NO SOB ON 2L O2 VIA NC. AFEBRILE@98.6. PT IS ON BEDREST. PT HAS URBAN. PT HAS SPO2 MONITOR AT BEDSIDE. IV SITE L AND R AC 18G BOTH SL PATENT AND INTACT. R IJ TRIPLE LUMEN RUNNING 1 UNIT OF PRBC'S@100ML/HR PATENT AND INTACT. NS@30ML/HR PATENT AND INTACT. AND OTHER LUMEN SL PATENT AND INTACT. SKIN WARM, DRY, AND NOT INTACT DUE TO A SMALL SKIN TEAR ON THE BUTTOCKS. BED LOCKED IN LOW POSITION. CALL [place] WITHIN REACH. SAFETY PRECAUTION IN PLACE. ALL NEEDS MET AT THIS TIME.
[2020-01-31] MEDS: CARVEDILOL 12.5 MG TAB PO SCH (20:34)
--- NOTE | 2020-01-31 20:34 | NUR ---
COREG, PRADAXA, AND VIT C GIVEN PO. NEURONTIN ALSO GIVEN LATE DUE TO PT RECEIVING SECOND DOSE LATE. PT TOLERATED WELL. Addendum: 02/01/20 at 0050 by Sukumar Zapata RN MORPHINE GIVEN FOR 02/28 GENERALIZED PAIN. PT TOLERATED WELL.
[2020-01-31] MEDS: DABIGATRAN ETEXILATE MESYLAT 75 MG CAP PO SCH (20:35)
--- NOTE | 2020-01-31 21:30 | NUR ---
MORPHINE 1MG GIVEN FOR 7/10 PAIN. 1MG WASTED WITH CESAR ANTHONY RN.
--- NOTE | 2020-01-31 21:45 | NUR ---
1 UNIT OF PRBC'S COMPLETE. NO S/S OF TRANSFUSION REACTIONS NOTED.
--- NOTE | 2020-01-31 23:40 | NUR ---
RUPAL HUNG AND RUNNING.
[2020-01-31] MEDS ORDERED: MELATONIN 3 MG TAB PO SCH (23:55)
[2020-02-01] VITALS (11 sets, daily range): BP systolic 115–151; BP diastolic 67–105
--- NOTE | 2020-02-01 00:16 | NUR ---
MELATONIN GIVEN FOR INSOMNIA. PT TOLERATED WELL. HYDRAGUARD APPLIED.
[2020-02-01] MEDS: MORPHINE SULFATE 2 MG/ML SYR IVP PRN ×4 (00:23→17:44)
[2020-02-01] MEDS: VANCOMYCIN 1,000 MG in DEXTROSE 5% 250 ML IV SCH ×2 (00:29→14:19)
--- NOTE | 2020-02-01 00:29 | NUR ---
NADYA DOWNS AND RUNNING. Addendum: 02/01/20 at 0049 by Sukumar Zapata RN MORPHINE GIVEN FOR 02/28 GENERALIZED PAIN. PT TOLERATED WELL.
[2020-02-01] MEDS: Z-GUARD PASTE TP SCH ×2 (00:34→13:00)
--- NOTE | 2020-02-01 02:45 | NUR ---
PT SLEEPING COMFORTABLY BUT AROUSABLE. NO S/S OF DISTRESS NOTED. NO COMPLAINTS OF PAIN. NO SOB. AFEBRILE. WILL CONTINUE TO MONITOR.
[2020-02-01] MEDS: PIPERACILLIN/TAZOBACTAM 3.375 GM in DEXTROSE 5% 50 ML IV SCH ×3 (05:32→19:24)
--- NOTE | 2020-02-01 05:32 | NUR ---
RUPAL HUNG AND RUNNING. MORPHINE GIVEN FOR 7/10 GENERALIZED PAIN. PT TOLERATED WELL.
[2020-02-01 06:22] LABS: BASOPHILS % (AUTO) 0.4 % (0.0-2.0); EOSINOPHILS # (AUTO) 0.1 K/uL (0-0.4); EOSINOPHILS % (AUTO) 0.9 % (0.0-4.0); HEMATOCRIT 24.4 % (36-48); HEMOGLOBIN 7.6 g/dL (12.0-16.0); LYMPHOCYTES # (AUTO) 0.9 K/uL (2.5-16.5); LYMPHOCYTES % (AUTO) 14.8 % (20.5-51.1); MEAN CORPUSCULAR HEMOGLOBIN 26 pg (27-31); MEAN CORPUSCULAR HGB CONC 31 g/dL (33-37); MEAN CORPUSCULAR VOLUME 82.5 fL (80-94); MONOCYTES # (AUTO) 0.5 K/uL (0.8-1.0); MONOCYTES % (AUTO) 8.1 % (1.7-9.3); NEUTROPHILS # (AUTO) 4.8 K/uL (1.8-7.7); NEUTROPHILS % (AUTO) 75.8 % (42.2-75.2); PLATELET COUNT (AUTO) 244 K/uL (140-450); RED BLOOD CELL COUNT(AUTO) 2.96 MIL/uL (4.20-5.40); RED CELL DISTRIBUTION WIDTH 19.1 % (11.6-13.7); WHITE BLOOD COUNT (AUTO) 6.3 K/uL (4.8-10.8)
[2020-02-01] MEDS ORDERED: NON-FORMULARY ITEM (Oxycodone HCl/Acetaminophen (Percocet 10-325 mg Tablet) 1 TAB) PO PRN (06:50)
[2020-02-01 06:54] LABS: ANION GAP 6.1 (8-16); CARBON DIOXIDE 33.6 mmol/L (21-32); CREATININE 0.6 mg/dL (0.6-1.3)
[2020-02-01 07:03] LABS: MAGNESIUM 1.7 mg/dL (1.8-2.4); PHOSPHORUS 2.3 mg/dL (2.5-4.9)
[2020-02-01 07:53] LABS: POTASSIUM 2.7 mmol/L (3.5-5.1)
--- NOTE | 2020-02-01 09:00 | NUR ---
RECIEVED PT WHO WAS ALTERED ON ADMISSION AND DX OF SEPSIS. THE PT HAS BEEN OFF PRESSORS FOR DAYS AND IS NOW ALERT AND ORIENTATED. SHE ALSO HAD A THORACENTESIS WITH A THOUSAND CC OUT. SHE IS STABLE ON O2 2L AT THIS TIME.
[2020-02-01] MEDS ORDERED: oxyCODONE/APAP 5/325 MG 1 TAB TAB PO PRN (09:05)
[2020-02-01] MEDS: CARVEDILOL 12.5 MG TAB PO SCH ×2 (09:07→20:12)
[2020-02-01] MEDS: FERROUS SULFATE 325 MG TABEC PO SCH ×2 (09:07→17:40)
[2020-02-01] MEDS: ESCITALOPRAM 20 MG TAB PO SCH (09:08)
[2020-02-01] MEDS: DIGOXIN 0.125 MG TAB PO SCH (09:08)
[2020-02-01] MEDS: GABAPENTIN 300 MG CAP PO SCH ×3 (09:09→17:40)
[2020-02-01] MEDS: SODIUM PHOS / POTASSIUM PHOS 1 PKT PDR PO SCH (09:10)
[2020-02-01] MEDS: DABIGATRAN ETEXILATE MESYLAT 75 MG CAP PO SCH ×2 (09:10→20:21)
[2020-02-01] MEDS: ASCORBIC ACID 500 MG TAB PO SCH ×2 (09:11→20:12)
[2020-02-01] MEDS ORDERED: FUROSEMIDE 40 MG/4 ML VIAL IVP SCH (09:25)
[2020-02-01 10:46] LABS: LACTATE DEHYDROGENASE 171 U/L (81-234)
[2020-02-01 10:53] LABS: APPEARANCE,SPUN,BODY FLUID CLEAR (CLEAR); APPEARANCE,UNSPUN,BODY FLUID CLOUDY (CLEAR); SPECIMENTYPE,BODY FLUID PLEURAL FLUID
[2020-02-01 10:54] LABS: COLOR,BODY FLUID YELLOW (LT YELLOW)
[2020-02-01 10:55] LABS: POLYNUCLEAR, BODY FLUID 12 %; RBC, BODY FLUID 30000 /cu. mm.; TOTAL VOLUME,BODY FLUID 1600 mL; WBC, BODY FLUID 300 /cu. mm.
[2020-02-01 10:56] LABS: ALBUMIN,BODY FLUID 0.8 g/dL; GLUCOSE,BODY FLUID 85 mg/dL
[2020-02-01] MEDS ORDERED: MAG SULF 2000 MG/WATER PREMIX 50 ML IV SCH (11:00)
[2020-02-01] MEDS ORDERED: POTASSIUM CHLORIDE 10 MEQ TABER PO SCH (11:00)
[2020-02-01] MEDS: NACL 0.9% 1,000 ML IV SCH (13:18)
--- NOTE | 2020-02-01 13:20 | NUR ---
Dayana FROM [facility] CALLED TO CHECK PATIENT CONDITION AND LAB RESULT. WILL FIND THE BED FOR HER.
[2020-02-01] MEDS ORDERED: KCL 20 MEQ/WATER INJ PREMIX 200 ML IV SCH (14:00)
[2020-02-01] MEDS: MUPIROCIN CA NASAL 2% 1GM TUBE NS SCH (15:00)
[2020-02-01] MEDS: CHLORHEXADINE GLUC 2% CLOTH TP SCH (15:00)
--- NOTE | 2020-02-01 15:18 | NUR ---
02/01/20 RD FOLLOW UP COMPLETED PLEASE REFER TO NUTRITION ASSESSMENT UNDER CARE ACTIVITY FOR ESTIMATED NUTRITIONAL NEEDS. 1. CONTINUE MECHANICAL SOFT DIET WITH NECTAR THICK LIQUIDS TOLERATED 2. CONTINUE ENSURE BID WITH NECTAR THICK LIQUIDS 3. PROVIDE FEEDING ASSISTANCE WITH MEALS IF APPROPRIATE 4. RD TO FOLLOW-UP 2-3 DAYS, HIGH RISK ALEJO MCFADDEN RD
--- NOTE | 2020-02-01 15:38 | NUR ---
ST TREATMENT NOTE S: Pt WAS SEEN AT BEDSIDE. HOB NEAR 90 DEGREES FOR ASPIRATION PRECAUTIONS. Pt WAS ALERT, RESPONSIVE, VERBAL, AND OVERALL COOPERATIVE. RN, CAROL, NOTED Pt HAS BEEN COUGHING WITH NECTAR LIQUIDS BY CUP. O: SWALLOW TX COMPLETED. A: Pt DEMONSTRATED THROAT CLEAR AND COUGH WITH NECTAR THICK LIQUIDS BY TSP ON 2/5 TRIALS. Pt WAS ABLE TO TOLERATE 4oz OF HONEY THICK LIQUIDS BY TSP W/O DIFFICULTY OR OVERT S/S OF ASPIRATION OR PENETRATION NOTED. Pt REPORTED BETTER SWALLOW AND NO SENSATION OF TICKLING AT BACK OF THROAT WITH HTL BY TSP. Pt IS TOLERATING MSFC FOOD W/O DIFFICULTY. P: REC TO DOWNGRADE DIET TEXTURE TO MSFC FOOD AND HONEY THICK LIQUIDS BY TSP ONLY. ASPIRATION PRECAUTIONS, ORAL CARE, AND FEEDER NEEDED D/T IMPULSIVITY. CONTINUE ST FOR SWALLOW TX FOR ONGOING DIET ANALYSIS, SAFE SWALLOW STRATEGIES, AND Pt/CAREGIVER EDUCATION. RAFI ALCANTAR MS, CCC-CERTIFIED ADDICTION COUNSELOR
--- NOTE | 2020-02-01 16:30 | NUR ---
THE PT IS GOING TO BE TRANSFERRED TO THE FLOOR. I GAVE REPORT TO ALVINO MITCHELL. THE PT IS SLEEPING AT THIS TIME. SHE DID HAVE TWO BMS THE SPEECH THERAPISTS CAME AND CHANGED THE DIET. I TAPED IT TO THE CHART. I DID GIVE THE PT MORPHINE EARLIER AND SHE HAS BEEN COMFORTABLE SINCE. VS REMAIN STABLE.
--- NOTE | 2020-02-01 17:00 | NUR ---
RECEIVED REPORT FROM ICU NURSE CAROL, PT IS AAOX4, ON O2 AT 2LPM VIA NC IV SITES INTACT AND PATENT, WITH URBAN CATHETER,TRANSFERRED TO [facility] BED, ORIENTED TO ROOM, SAFETY MEASURES IN PLACE AND CALL LIGHT WITHIN REACH. WILL CONTINUE TO MONITOR
--- NOTE | 2020-02-01 17:44 | NUR ---
PT COMPLAINS OF PAIN 05/01 GAVE HER MORPHINE IV. CHECK VITAL SIGNS PRIOR TO MEDICATION BP 130/90 VT 88. SAFETY MEASURES IN PLACE CALL LIGHT WITHIN REACH. WILL CONTINUE TO MONITOR
[2020-02-01 18:26] LABS: ANION GAP 9.9 (8-16); CARBON DIOXIDE 30.6 mmol/L (21-32); CREATININE 0.6 mg/dL (0.6-1.3); POTASSIUM 3.5 mmol/L (3.5-5.1)
--- NOTE | 2020-02-01 18:42 | NUR ---
P.T. NOTES P.T. EVAL COMPLETED; WILL BENEFIT W/ P.T. POT ACUTE STAY.
--- NOTE | 2020-02-01 18:47 | NUR ---
NURSE LY OF [facility] CALLED AT THIS TIME TO GIVE TRANSFER INFO FOR PT. TRANSFER TO ROOM 427, CALL REPORT [phone] AND SEA CAPTAIN TIME IS 2100. THEY NEED A TRANSFER SUMMARY, COPY OF CHART AND CD'S. MALACHI NUMBER; [phone]
--- NOTE | 2020-02-01 19:15 | NUR ---
ENDORSED PT TO NIGHT NURSE FOR CONTINUITY OF CARE. PT IS STABLE
--- NOTE | 2020-02-01 19:16 | NUR ---
RECEIVED BEDSIDE REPORT FROM DAY SHIFT NURSE. PT BREATHING EVEN AND UNLABORED WITH 2LPM O2 VIA NC. IV SITE R IJ CENTRAL LINE. LAC 18G, RAC 20G, PATENT, INTACT AND ASYMPTOMATIC. CONTACT ISOLATION D/T MRSA POSITIVE. PT WILL BE TRANSFER TO [place] [id number]. PT AWARE. HELPED PT TO CALL HER AND TRIED TO CALL HIM TO INFORM TRANSFER BUT BUSY SIGNAL. WILL TRY LATER. BED IN LOW POSITION, CALL LIGHT WITHIN REACH.
--- NOTE | 2020-02-01 20:04 | NUR ---
GIVEN COREG, PRADAXA, AND VITAMIN C MD ORDERED. PT TOLERATED WELL.
--- NOTE | 2020-02-01 20:25 | NUR ---
INFORMED PT'S SPOUSE THAT PT WILL BE TRANSFERRED AT 9PM TO [id number].
--- NOTE | 2020-02-01 20:40 | NUR ---
GAVE REPORT TO SAHARA IN [place].
--- NOTE | 2020-02-01 21:50 | NUR ---
PT LEFT WITH TRANSPORTATION TEAM. REMOVED IV, ID BAND, TELE MONITORING. PT IN STABLY CONDITION.
== END 2020-02-01 21:50 | disposition short-term general hospital (02) | DRG 871 ==
LOC: MED 03:30 → EEVIPCON 03:30 → MIC 05:45 → MTU 02-01 16:30
PROVIDERS: ADMIT General Practice; ATTEND General Practice
PROC: 02HV33Z Insertion of Infusion Device into Superior Vena Cava, Percutaneous Approach (ICD-10-PCS; 2020-01-29)
PROC: B548ZZA Ultrasonography of Superior Vena Cava, Guidance (ICD-10-PCS; 2020-01-29)
PROC: 30233N1 Transfusion of Nonautologous Red Blood Cells into Peripheral Vein, Percutaneous Approach (ICD-10-PCS; principal; 2020-01-31)
PROC: 0W9B3ZZ Drainage of Left Pleural Cavity, Percutaneous Approach (ICD-10-PCS; 2020-01-31)
DX: A41.9 Sepsis, unspecified organism (principal); R65.21 Severe sepsis with septic shock; J96.01 Acute respiratory failure with hypoxia; G92 Toxic encephalopathy; N17.0 Acute kidney failure with tubular necrosis; J69.0 Pneumonitis due to inhalation of food and vomit; E43 Unspecified severe protein-calorie malnutrition; I50.43 Acute on chronic combined systolic (congestive) and diastolic (congestive) heart failure; J98.11 Atelectasis; N39.0 Urinary tract infection, site not specified; J91.8 Pleural effusion in other conditions classified elsewhere; D68.9 Coagulation defect, unspecified; E87.0 Hyperosmolality and hypernatremia; I13.0 Hypertensive heart and chronic kidney disease with heart failure and stage 1 through stage 4 chronic kidney disease, or unspecified chronic kidney disease; F32.9 Major depressive disorder, single episode, unspecified; G89.4 Chronic pain syndrome; I11.0 Hypertensive heart disease with heart failure; I48.91 Unspecified atrial fibrillation; Z96.642 Presence of left artificial hip joint; T40.5X1A Poisoning by cocaine, accidental (unintentional), initial encounter; T40.601A Poisoning by unspecified narcotics, accidental (unintentional), initial encounter; R47.02 Dysphasia; N18.9 Chronic kidney disease, unspecified; E86.0 Dehydration; T45.515A Adverse effect of anticoagulants, initial encounter; D64.9 Anemia, unspecified; E87.6 Hypokalemia; E83.51 Hypocalcemia; E83.39 Other disorders of phosphorus metabolism; E83.42 Hypomagnesemia; E87.8 Other disorders of electrolyte and fluid balance, not elsewhere classified; Z88.8 Allergy status to other drugs, medicaments and biological substances; Z68.26 Body mass index [BMI] 26.0-26.9, adult; Z22.322 Carrier or suspected carrier of Methicillin resistant Staphylococcus aureus; Z79.01 Long term (current) use of anticoagulants; Z82.49 Family history of ischemic heart disease and other diseases of the circulatory system; Y92.89 Other specified places as the place of occurrence of the external cause; Z03.818 Encounter for observation for suspected exposure to other biological agents ruled out; Z79.899 Other long term (current) drug therapy
CPT/HCPCS: 36415; 36600; 70450; 71045; 76604; 76770; 76942; 80048; 80053; 80162; 80202; 80305; 81001; 82272; 82550; 82607; 82728; 82746; 82803; 82945; 83036; 83540; 83605; 83615; 83735; 83880; 84100; 84157; 84439; 84443; 84484; 85025; 85045; 85379; 85610; 85651; 85730; 86140; 86886; 86900; 86901; 86920; 87040; 87070; 87075; 87081; 87086; 87186; 87205; 88305; 89051; 92526; 92610; 93005; 96361; 96365; 96368; 97112; 97163-GP; 99291; G0480; G0482; J1642; J1644; J1940; J2001; J2060; J2270; J2543; J3370; J3475; J3480; J3490; J7030; J7060; P9016; Q0092; Q9967; U0003-CS